=== PATIENT | male | born 1960 | race Caucasian/White ===

== ENCOUNTER 2019-03-08 12:21 | Inpatient (IN) | payer MEDICAID ==
[~2019-03-08] VITALS: Ht 170.2 cm; Wt 63.9 kg
[~2019-03-08 12:21] MED LIST: HYDR1TAB14 PO
--- NOTE | 2019-03-08 12:43 | NUR ---
FIRST CONTACT WITH PT. EDPA at bedside. Pt c/o abdominal pain in RLQ. Pt states, "my colon is kind of full." Pt states, "for a few days I have had no appetite. I am not vomiting or having diarrhea. I just feel like I am going to. I have a lump there (RLQ)." Pt connected to hospital monitor, NIBP, and continou pulse ox. Pt is AOX4, skin is pink, warm, and dry, and pt has unlabored respirations equal bilaterally. Bedrails up for safety measures, call light within reach.
[2019-03-08] MEDS ORDERED: LABETALOL 5MG/ML, 20ML IVPush STA (12:53)
[2019-03-08] MEDS ORDERED: ONDANSETRON 2MG/ML, 2ML IVPush ONE ×2 (13:00→15:30)
[2019-03-08] MEDS ORDERED: SODIUM CHLORIDE FLUSH 10ML SYR IVF ONE (13:00)
[2019-03-08 13:10] LABS: BASOPHILS # (AUTO) 0.01 x10^3/uL (0-0.1); BASOPHILS % (AUTO) 0 % (0-1); EOSINOPHILS # (AUTO) 0.04 x10^3/uL (0-0.4); EOSINOPHILS % (AUTO) 1 % (1-7); LYMPHOCYTES # (AUTO) 0.44 x10^3/uL (1-3.4); LYMPHOCYTES % (AUTO) 7 % (22-44); MD NO; MEAN CORPUSCULAR HEMOGLOBIN 29.9 pg (27.5-34.5); MEAN CORPUSCULAR HGB CONC 32.4 g/dL (33.2-36.2); MEAN CORPUSCULAR VOLUME 92.2 fL (81-97); MEAN PLATELET VOLUME 6.7 fL (7.4-10.4); MONOCYTES # (AUTO) 0.91 x10^3/uL (0.2-0.8); MONOCYTES % (AUTO) 14 % (2-9); NEUTROPHILS # (AUTO) 4.96 x10^3/uL (1.8-6.8); NEUTROPHILS % (AUTO) 78 % (42-75); PLATELET COUNT 490 x10^3/uL (130-400); RED CELL DISTRIBUTION WIDTH 15.1 % (9.4-14.8)
[2019-03-08 13:22] LABS: ALBUMIN 3.3 g/dL (3.4-5.0); ANION GAP 8 mmol/L (5-15); CALCIUM 9.2 mg/dL (8.5-10.1); CHLORIDE 104 mmol/L (98-107)
--- NOTE | 2019-03-08 13:22 | NUR ---
TASK RN: PIV ESTABLISHED AND PT MED NOTED FOR HTN AND NAUSEA. CT TRANSPORT HERE TO TRANSPORT TO CT. RN QUESTED THAT THEY RETURN IN 15MIN 2/2 BP MED HAVING JUST BEEN GIVEN.
[2019-03-08 13:25] LABS: ALANINE AMINOTRANSFERASE 19 U/L (12-78); ALKALINE PHOSPHATASE 110 U/L (45-117); BILIRUBIN,TOTAL 0.5 mg/dL (0.2-1.0); CREATININE 1.66 mg/dL (0.7-1.3); TOTAL PROTEIN 7.7 g/dL (6.4-8.2)
[2019-03-08] MEDS ORDERED: ONDANSETRON 2MG/ML, 2ML ONE ×2 (13:33→15:04)
--- NOTE | 2019-03-08 13:44 | NUR ---
REPEAT VS HR 77 BP 102/60, DR RIOJAS UPDATED. NS 1 LITER BOLUS ORDERED AND INFUSING W/O DIFFICULTY.
[2019-03-08] MEDS ORDERED: SODIUM CHLORIDE 0.9% 1,000ML IVBOLUS ONE (14:00)
[2019-03-08 14:10] VITALS: BP_SYST 155; BP_DIAS 69; BP_DIAS 99
--- NOTE | 2019-03-08 14:25 | NUR ---
Pt transported to imaging on [facility]. Pt not in ED room at this time.
--- NOTE | 2019-03-08 14:34 | NUR ---
[facility] [place] Pt asleep on gurney. Pt reconnected to teletypesetter monitor, NIBP, and continous pulse ox. PIV fluids finished infusing per EMAR. Both bedrails up for safety measures. No needs expressed at this time. Pt aware of need of urine sample. urinal provided earlier approximately at 1330. No urine sample provided at this time.
[2019-03-08] MEDS ORDERED: MORPHINE SULFATE 4 MG/ML, 1ML ONE (15:04)
--- NOTE | 2019-03-08 15:19 | NUR ---
Provided medication per EMAR and pt request. 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 Pt appreciaitve for pain meds.
[2019-03-08] MEDS ORDERED: MORPHINE SULFATE 4 MG/ML, 1ML IVPush PRN ×2 (15:30→17:30)
--- NOTE | 2019-03-08 15:44 | NUR ---
Provided report to ARCENIO Marie. All questions answered. Pt ready to transfer to floor from ED.
--- NOTE | 2019-03-08 15:48 | NUR ---
MARINA when pt transfered to floor from ED.
--- NOTE | 2019-03-08 15:48 | NUR ---
Pt transfered to floor from ED and left with all personal belongings.
[2019-03-08] MEDS ORDERED: ONDANSETRON 2MG/ML, 2ML IVPush PRN (16:00)
[2019-03-08] MEDS ORDERED: ONDANSETRON ODT 4 MG PO PRN (16:00)
[2019-03-08] MEDS ORDERED: LABETALOL 5 MG/ML SYRINGE IVPush PRN (16:00)
[2019-03-08 16:12] VITALS: BP 160/103
[2019-03-08 16:24] LABS: FREE T4 (FREE THYROXINE) 1.41 ng/dL (0.76-1.46)
[2019-03-08] MEDS ORDERED: hydrALAzine 20 MG/ML, 1ML IV PRN (17:00)
[2019-03-08 19:06] VITALS: BP 152/94
[2019-03-08] MEDS: D5%-0.45% NACL 1,000 ML IV SCH (20:45)
[2019-03-08] MEDS: CEFTRIAXONE PMX 1GM/50ML 50 ML IV SCH (20:49)
[2019-03-08 21:15] LABS: MICROSCOPIC AUTO
[2019-03-08 21:17] LABS: CULTURE INDICATED? YES
[2019-03-08 21:24] LABS: AMPHETAMINE SCREEN, URINE Positive (Negative); BARBITURATE SCREEN, URINE Negative (Negative); BENZODIAZEPINE SCREEN, URINE Negative (Negative); CANNABINOID SCREEN, URINE Positive (Negative); COCAINE SCREEN, URINE Negative (Negative); METHADONE SCREEN, URINE Negative (Negative); OPIATE SCREEN, URINE Positive (Negative)
[2019-03-08] MEDS: METRONIDAZOLE PMX 500MG/100ML 100 ML IV SCH (21:43)
[2019-03-09 01:04] VITALS: BP 131/52
[2019-03-09] MEDS: D5%-0.45% NACL 1,000 ML IV SCH ×3 (05:20→22:03)
[2019-03-09] MEDS: METRONIDAZOLE PMX 500MG/100ML 100 ML IV SCH ×3 (05:21→22:03)
[2019-03-09 05:33] LABS: MEAN CORPUSCULAR HEMOGLOBIN 30.5 pg (27.5-34.5); MEAN CORPUSCULAR HGB CONC 33.5 g/dL (33.2-36.2); MEAN CORPUSCULAR VOLUME 91.2 fL (81-97); MEAN PLATELET VOLUME 6.9 fL (7.4-10.4); PLATELET COUNT 398 x10^3/uL (130-400); RED BLOOD COUNT 4.34 x10^6/uL (4.38-5.82); RED CELL DISTRIBUTION WIDTH 15.2 % (9.4-14.8)
[2019-03-09 05:37] LABS: ALBUMIN 2.6 g/dL (3.4-5.0); ANION GAP 7 mmol/L (5-15); CHLORIDE 109 mmol/L (98-107)
[2019-03-09 05:51] LABS: ALANINE AMINOTRANSFERASE 10 U/L (12-78); ALKALINE PHOSPHATASE 84 U/L (45-117); BILIRUBIN,TOTAL 0.3 mg/dL (0.2-1.0); CALCIUM 7.6 mg/dL (8.5-10.1); CREATININE 1.47 mg/dL (0.7-1.3); TOTAL PROTEIN 6.1 g/dL (6.4-8.2)
[2019-03-09 06:29] LABS: MD YES
[2019-03-09 06:32] LABS: BAND#(MANUAL) 0.16 x10^3/uL; BANDS%(MANUAL) 4 % (0-7); EOS#(MANUAL) 0.04 x10^3/uL (0.0-0.4); EOS% (MANUAL) 1 % (1-7); MONOS% (MANUAL) 22 % (2-9)
[2019-03-09 06:33] LABS: LYMPH#(MANUAL) 0.45 x10^3/uL (1-3.4); LYMPHS% (MANUAL) 11 % (22-44); SEG#(MANUAL) 2.54 x10^3/uL (1.8-6.8); SEGS% (MANUAL) 62 % (42-75)
[2019-03-09 06:34] LABS: <PLATELET ESTIMATE> ADEQUATE; <PLT MORPHOLOGY> NORMAL PLT MORPH; ANISOCYTOSIS 1+
[2019-03-09 06:49] VITALS: BP 143/92
[2019-03-09 12:32] VITALS: BP 145/88
[2019-03-09] MEDS: CEFTRIAXONE PMX 1GM/50ML 50 ML IV SCH (19:26)
[2019-03-09 19:47] VITALS: BP 151/91
[2019-03-10 01:57] VITALS: BP 155/90
[2019-03-10] MEDS: METRONIDAZOLE PMX 500MG/100ML 100 ML IV SCH ×3 (05:48→22:07)
[2019-03-10] MEDS: D5%-0.45% NACL 1,000 ML IV SCH ×3 (05:48→22:00)
[2019-03-10 07:46] LABS: ALANINE AMINOTRANSFERASE 12 U/L (12-78); ALBUMIN 2.3 g/dL (3.4-5.0); ANION GAP 4 mmol/L (5-15); CALCIUM 7.8 mg/dL (8.5-10.1); CHLORIDE 110 mmol/L (98-107); CREATININE 1.32 mg/dL (0.7-1.3)
[2019-03-10 07:48] LABS: ALKALINE PHOSPHATASE 69 U/L (45-117); BILIRUBIN,TOTAL 0.1 mg/dL (0.2-1.0); TOTAL PROTEIN 5.8 g/dL (6.4-8.2)
[2019-03-10 08:11] LABS: MEAN CORPUSCULAR HGB CONC 32.4 g/dL (33.2-36.2); MEAN CORPUSCULAR VOLUME 92.6 fL (81-97); PLATELET COUNT 401 x10^3/uL (130-400); RED BLOOD COUNT 4.07 x10^6/uL (4.38-5.82); RED CELL DISTRIBUTION WIDTH 15.4 % (9.4-14.8)
[2019-03-10 08:47] LABS: MD YES
[2019-03-10 08:48] LABS: EOS#(MANUAL) 0.37 x10^3/uL (0.0-0.4); EOS% (MANUAL) 12 % (1-7); LYMPH#(MANUAL) 0.87 x10^3/uL (1-3.4); LYMPHS% (MANUAL) 28 % (22-44); MONOS#(MANUAL) 0.68 x10^3/uL (0.3-2.7); MONOS% (MANUAL) 22 % (2-9); REACTIVE LYMPHS # (MANUAL) 0.06 x10^3/uL (0-0); REACTIVE LYMPHS % (MANUAL) 2 % (0-0); SEG#(MANUAL) 1.12 x10^3/uL (1.8-6.8); SEGS% (MANUAL) 36 % (42-75)
[2019-03-10 08:50] LABS: <PLATELET ESTIMATE> ADEQUATE; <PLT MORPHOLOGY> NORMAL PLT MORPH; ANISOCYTOSIS 1+; OVALOCYTES 1+
[2019-03-10 09:50] VITALS: BP 149/89
[2019-03-10] MEDS ORDERED: ENOXAPARIN 60 MG/0.6 ML SQ SCH (11:30)
[2019-03-10 13:05] VITALS: BP 153/90
[2019-03-10] MEDS ORDERED: ENOXAPARIN 40 MG/0.4 ML SQ SCH (13:30)
[2019-03-10 18:45] VITALS: BP 160/98
[2019-03-10] MEDS: CEFTRIAXONE PMX 1GM/50ML 50 ML IV SCH (20:02)
[2019-03-11 01:24] VITALS: BP 149/56
[2019-03-11] MEDS: D5%-0.45% NACL 1,000 ML IV SCH (04:51)
[2019-03-11] MEDS: METRONIDAZOLE PMX 500MG/100ML 100 ML IV SCH (05:58)
[2019-03-11] MEDS ORDERED: CIPR500T87 PO (06:53)
[2019-03-11] MEDS ORDERED: METR500T PO (06:53)
[2019-03-11] MEDS ORDERED: CEFTRIAXONE PMX 1GM/50ML 50 ML IV SCH (07:00)
[2019-03-11 08:00] VITALS: BP 172/108
[2019-03-11 10:26] VITALS: BP 154/93
== END 2019-03-11 11:34 | disposition home or self-care (01) | DRG 388 ==
LOC: ED 15:02 → EDIP 15:03 → ED 15:11 → 3NE 15:24 → DCLOUNGE 03-11 11:26
PROVIDERS: ADMIT Internal Medicine; ATTEND Internal Medicine
DX: K56.600 Partial intestinal obstruction, unspecified as to cause (principal); N17.0 Acute kidney failure with tubular necrosis; E43 Unspecified severe protein-calorie malnutrition; K50.90 Crohn's disease, unspecified, without complications; D64.9 Anemia, unspecified; Z68.22 Body mass index [BMI] 22.0-22.9, adult; F15.10 Other stimulant abuse, uncomplicated; I10 Essential (primary) hypertension; N20.9 Urinary calculus, unspecified; Z59.0 Homelessness; Z87.891 Personal history of nicotine dependence; Z91.14 Patient's other noncompliance with medication regimen
CPT/HCPCS: 36415; 74176; 80053; 80307; 81001; 83735; 84100; 84439; 84443; 85025; 87040; 87086; 93005; 96361; 96374; 96375; 99285; G0378; J0696; J2405; J0360; J7030